=== PATIENT | female | born 1935 | race Caucasian/White ===

== ENCOUNTER 2017-07-03 17:44 | Emergency (ER) | payer MEDICARE ==
[~2017-07-03] VITALS: Ht 160 cm; Wt 93.4 kg
[~2017-07-03 17:44] MED LIST: ALBU3IS INH; ALEN70 PO; ATOR40TA PO; Acephen650 MG PR; CALCIUM 600 PO; CALTRATE 600 +1 EACH PO; CEFP200 PO; CLOP75 PO; CODACE30 PO; Cranberry500 MG PO; DILT120 PO; DILTIAZEM 24HR120 M1 PO; FURO40 PO; FURO80 PO; METO25ER PO; MIRT15 PO; NITR100CA PO; OMEP20ER PO; ONDA4ODT MM; PANT20 PO; POTCHL20ER PO; PRED10 PO; SIMV40 PO; STIOLTO RESPIMAT4 GM INH; THEO200ERA PO; THEO200ERC PO; WARF4 PO; WARF5 PO
== END 2017-07-03 18:55 | disposition home or self-care (01) ==
LOC: ER 17:44
DX: R79.1 Abnormal coagulation profile (principal); I48.91 Unspecified atrial fibrillation; Z87.891 Personal history of nicotine dependence; Z88.0 Allergy status to penicillin; Z88.2 Allergy status to sulfonamides; Z88.4 Allergy status to anesthetic agent; Z88.1 Allergy status to other antibiotic agents; Z88.8 Allergy status to other drugs, medicaments and biological substances; Z88.5 Allergy status to narcotic agent; Z79.01 Long term (current) use of anticoagulants; Z79.899 Other long term (current) drug therapy; Z90.89 Acquired absence of other organs
CPT/HCPCS: 99282

== ENCOUNTER → 2018-05-24 | Outpatient (CLI) | payer MEDICARE ==
[2018-05-24 12:00] LABS: BASOPHILS ABSOLUTE AUTO 0.03 K/mm3 (0.00-0.23); BASOPHILS PERCENT AUTO 1 % (0-2); EOSINOPHILS ABSOLUTE AUTO 0.11 K/mm3 (0.00-0.68); EOSINOPHILS PERCENT AUTO 2 % (0-6); Hematocrit 42.8 % (33.0-51.0); Hemoglobin 12.9 g/dL (11.5-16.0); IMMATURE GRAN ABSOLUTE AUTO 0.01 K/mm3 (0.00-0.10); IMMATURE GRAN PERCENT AUTO 0 % (0-1); LYMPHOCYTES ABSOLUTE AUTO 1.02 K/mm3 (0.84-5.20); LYMPHOCYTES PERCENT AUTO 17 % (21-46); MONOCYTES ABSOLUTE AUTO 0.28 K/mm3 (0.16-1.47); MONOCYTES PERCENT AUTO 5 % (4-13); Mean Corpuscular HGB 28.9 pg (26.0-34.0); Mean Corpuscular HGB Conc 30.1 g/dL (31.5-36.5); Mean Corpuscular Volume 96 fL (80-100); Mean Platelet Volume 12.4 fL (9.1-12.4); NEUTROPHILS PERCENT AUTO 75 % (41-73); Platelet Count 226 K/mm3 (150-400); RDW Coefficient Variation 13.4 % (11.7-14.2); RDW Standard Deviation 47.7 fL (35.1-46.3); Red Blood Cell Count 4.47 M/mm3 (3.80-5.20); White Blood Cell Count 5.85 K/mm3 (4.00-11.30)
[2018-05-24 12:10] LABS: Alanine Aminotransfer (ALT/SGP 12 U/L (12-78); Albumin, Blood 3.5 g/dL (3.4-5.0); Albumin/Globulin Ratio 1.2 (0.8-1.8); Alk Phos 81 U/L (50-136); Anion Gap 6 mmol/L (6-16); Aspartate Aminotrans (AST/SGOT 12 U/L (12-37); Bilirubin, Total 0.6 mg/dL (0.1-1.0); Blood Urea Nitrogen 18 mg/dL (8-24); Bun/Creatinine Ratio 17.6 (12.0-20.0); CHOL/HDL RATIO 3.1; CO2, Blood 32 mmol/L (21-32); Chloride, Blood 106 mmol/L (98-108); Cholesterol 131 mg/dL (50-200); Creatinine, Blood 1.02 mg/dL (0.40-1.00); Globulin, Blood 2.8 g/dL (2.2-4.0); Glomerular Filtration Rate 55 (60-); Glucose, Blood 100 mg/dL (70-99); HDL Cholesterol 42 mg/dL (>39); LDL/HDL RATIO 1.4; Low Density Lipoprotein Chol 58 mg/dL (0-110); Potassium, Blood 4.7 mmol/L (3.5-5.5); Sodium, Blood 144 mmol/L (136-145); Total Protein, Blood 6.3 g/dL (6.4-8.2); Triglycerides 155 mg/dL (30-160); Very Low Density Lipoprot Chol 31 mg/dL (6-32)
== END | disposition home or self-care (01) ==
LOC: LAB SHORT 09:40 → LAB 09:40
PROVIDERS: Physician Assistant
DX: I11.0 Hypertensive heart disease with heart failure (principal); I50.9 Heart failure, unspecified; E78.5 Hyperlipidemia, unspecified
CPT/HCPCS: 80053; 80061; 83880; 85025

== ENCOUNTER 2018-07-09 13:32 | Day surgery (SDC) | payer MEDICARE ==
[~2018-07-09] VITALS: Ht 160 cm; Wt 81.2 kg
[2018-07-09] MEDS ORDERED: SIMV40 PO (14:59)
[2018-07-09] MEDS ORDERED: THEO200ERC PO (15:03)
[2018-07-09] MEDS ORDERED: FURO40 (15:03)
[2018-07-09] MEDS ORDERED: PROM25S (15:04)
[2018-07-09] MEDS ORDERED: ACET120S (15:04)
[2018-07-09] MEDS ORDERED: Ventolin Sy2 MG/5 ML GT (15:05)
[2018-07-09] MEDS ORDERED: MIRT15 PO (15:06)
[2018-07-09] MEDS ORDERED: NITR100CA PO (15:06)
[2018-07-09] MEDS ORDERED: Stool Soft & S1 EACH PO (15:07)
--- NOTE | 2018-07-09 15:55 | NUR ---
07/09/18 1555 [place] LATE ENTRY-[id number] DR LAM NOTIFIED OF PATIENTS CBG WAS 60. DR LAM GAVE ORDER FOR DEXTROSE 50% TO GIVE 25 ML IV. 1500 RECHECKED PATIENTS CBG AND IT WAS 136
== END 2018-07-09 16:02 | disposition home or self-care (01) ==
LOC: ORSCSDS 13:32
PROVIDERS: Internal Medicine Gastroenterology
PROC: 0D758ZZ Dilation of Esophagus, Via Natural or Artificial Opening Endoscopic (ICD-10-PCS; principal; 2018-07-09 15:30)
PROC: 0DB68ZX Excision of Stomach, Via Natural or Artificial Opening Endoscopic, Diagnostic (ICD-10-PCS; principal; 2018-07-09 15:30)
DX: R11.0 Nausea (principal); R13.14 Dysphagia, pharyngoesophageal phase; K31.7 Polyp of stomach and duodenum; G47.33 Obstructive sleep apnea (adult) (pediatric); Z87.891 Personal history of nicotine dependence; Z79.01 Long term (current) use of anticoagulants; Z79.899 Other long term (current) drug therapy; K44.9 Diaphragmatic hernia without obstruction or gangrene
CPT/HCPCS: 82947; 87081; 88305; J7120

== ENCOUNTER 2018-10-10 18:23 | Inpatient (IN) | payer MEDICARE ==
[~2018-10-10] VITALS: Ht 157.5 cm; Wt 78.9 kg
[~2018-10-10 18:23] MED LIST changes: +ACET120S; -Acephen650 MG PR; -DILTIAZEM 24HR120 M1 PO; +Diltiazem ER180 M1 PO; +FURO40; +Feverall650 MG PR; +PROM25S; +Stool Soft & S1 EACH PO; +Ventolin Sy2 MG/5 ML GT
[2018-10-10] MEDS ORDERED: POTCHL20ER PO (19:03)
[2018-10-10] MEDS ORDERED: WARF3 PO (19:10)
[2018-10-10] MEDS ORDERED: FURO40 PO (19:36)
[2018-10-10] MEDS ORDERED: NITR100CA PO (19:37)
[2018-10-10] MEDS ORDERED: Calcium + Vita1 EACH PO (19:39)
[2018-10-10] MEDS ORDERED: Acetaminophen-1 EAC1 PO (19:42)
[2018-10-10] MEDS ORDERED: STIOLTO RESPIMAT4 GM INH (19:43)
[2018-10-10] MEDS ORDERED: WARF1 PO (19:49)
[2018-10-10 20:27] LABS: International Normalized Ratio 2.34
[2018-10-11 05:50] LABS: International Normalized Ratio 2.62; Prothrombin Time Results 25.4 Sec (9.7-11.5)
[2018-10-11 05:58] LABS: Bun/Creatinine Ratio 17.5 (12.0-20.0); Calcium, Blood 8.5 mg/dL (8.5-10.1); Creatinine, Blood 1.37 mg/dL (0.40-1.00); Potassium, Blood 3.1 mmol/L (3.5-5.5)
[2018-10-11 10:42] LABS: Albumin, Blood 3.4 g/dL (3.4-5.0); Anion Gap 7 mmol/L (6-16); Blood Urea Nitrogen 22 mg/dL (8-24); Bun/Creatinine Ratio 14.7 (12.0-20.0); CO2, Blood 29 mmol/L (21-32); Calcium, Blood 8.4 mg/dL (8.5-10.1); Chloride, Blood 104 mmol/L (98-108); Glomerular Filtration Rate 35 (60-); Glucose, Blood 75 mg/dL (70-99); Phosphorus, Blood 2.9 mg/dL (2.5-4.9); Potassium, Blood 3.6 mmol/L (3.5-5.5); Sodium, Blood 140 mmol/L (136-145)
--- NOTE | 2018-10-11 14:11 | NUR ---
DR FENTON IN TO SEE PT. HR REPORTS THAT HE CANNOT DO ANY DILATION ON PT DUE TO BEING ON COUMADIN AND PLAVIX AND PT NEEDS TO BE OFF THIS FOR APROX 5 DAYS. HE STATES THAT PT CAN BE PLACED ON A FULL LIQUID DIET AND SUGGESTS STAYING ON FULL LIQUID AFTER DISCHARGE AND TO SCHEDULE APPOINTMENT WITH DR GODINEZ FOR DILATION. PT REPORTS SHE STILL DOES NOT FEEL WELL. DR PAN NOTIFIED AND REPORTS TO GIVE PT A FULL LIQUID DIET NOW AND HE WILL COME BACK TO CHECK ON PT.
--- NOTE | 2018-10-11 15:07 | NUR ---
PT ONLY TOLERATED A FEW BITES OF JELLO AND THEN BECAME NAUEATED WITH SMALL AMOUNT OF EMESIS. PT REPORTS IT JUST FEELS LIKE "IT WONT GO DOWN."
--- NOTE | 2018-10-11 18:27 | NUR ---
SHIFT SUMMARY- PT A/OX4, SBA WITH FWW INTO BATHROOM. PT MEDICATED X1 FOR CHRONIC BACK PAIN. GI CONSULTED AND REPORTED THEY CANNOT DO A DILATION SINCE PT IS ON COUMADIN AND PLAVIX, THIS NEEDS TO BE HELD FOR AT LEAST 5 DAYS. PT STARTED ON FULL LIQUID DIET BUT NOT TOLERATING. IVF CHANGED THIS EVENING FOR 2 BAGS THEN CLINIMIX TO START TOMORROW AM. PT WITH NAUSEA T/O THE DAY WITH MINIMAL EMESIS AFTER JELLO. IV PROTONIX STARTED. LS CLEAR, ON RA. TELE AFIB 78. NO OTHER ACUTE CHANGES THIS SHIFT.
--- NOTE | 2018-10-11 18:39 | NUR ---
SHIFT SUMMARY PT FELT NAUSIOUS OFF AND ON DURING THE SHIFT. GAVE PRN MEDICATION FOR NAUSEA AND SHE ATTEMPTED TO EAT. SHE AT A SMALL AMOUNT OF JELLO AND VOMITED IT UP. SHE WAS HAVING SOME PAIN IN HER BACK AND WAS GIVEN PRN TYLENOL. PLAN IS TO CONTINUE TO MONITOR.
--- NOTE | 2018-10-11 20:31 | NUR ---
CLINIMIX STARTS 10/12/18 0900HRS. CHECK EMAR.
--- NOTE | 2018-10-12 05:45 | NUR ---
SHIFT SUMMARY PT SLEPT T/O SHIFT WITH NO COMPLAINTS. PT CURRENTLY SLEEPING. CALL LIGHT IN REACH.
[2018-10-12 05:54] LABS: Bun/Creatinine Ratio 15.5 (12.0-20.0); Calcium, Blood 8.4 mg/dL (8.5-10.1); Creatinine, Blood 1.29 mg/dL (0.40-1.00)
--- NOTE | 2018-10-12 16:47 | NUR ---
PT A/OX3, PLEASANT AND COOPERATIVE, THE PT IS UP WITH MINIMAL ASSIST TO THE BATHROOM, THE PT WAS UP IN THE CHAIR X1 TODAY, THE PT WAS ABLE TO EAT A SMALL AMOUNT OF HER BREAKFAST TODAY WITHOUT VOMITING, HOWEVER, AT LUNCH THE PT VOMITED A SMALL AMOUNT OF HER SOUP, THE PT WAS MEDICATED FOR N/V T/O THE DAY SHE REQUESTED, THE PT APPEARS TO BE BREATHING EASILY AT REST, CALL LIGHT IN REACH WILL CONTINUE TO MONITOR AND ASSESS FOR CHANGES
[2018-10-13 06:07] LABS: Bun/Creatinine Ratio 20.8 (12.0-20.0); Calcium, Blood 8.4 mg/dL (8.5-10.1); Creatinine, Blood 1.2 mg/dL (0.40-1.00); Potassium, Blood 4.4 mmol/L (3.5-5.5)
--- NOTE | 2018-10-13 07:20 | NUR ---
SHIFT SUMMARY PT SLEPT T/O SHIFT. PT HAD NO COMPLAINTS OR ISSUES NOTED. PT HAD SOME NAUSEA THIS AM WITH MED PASS AND WAS TX PER EMAR. PT WENT BACK TO SLEEP SHORTLY AFTER. PT IS BREATHING EASY AND IN NO DISTRESS. CALL LIGHT IN REACH.
--- NOTE | 2018-10-13 15:27 | NUR ---
STUDENT ASSESSMENT I AGREE WITH AND WAS PRESENT AT THE ENEDINA CHAPPELL ASSESSMENT OF THE PT
--- NOTE | 2018-10-13 17:09 | NUR ---
Pt is A&Ox3. Pt is calm and cooperative. Pt has been awake with small naps throughout this shift. Small amounts of meals have been consumed and tolerated poorly. Order for PPN was placed this afternoon. Pt has had visitor in the room for a portion of this shift. Barium swallow test performed this afternoon. Pt is standby ambulatory with front wheel walker to the bathroom. Pt currently in room with visitor. Will continue to monitor.
[2018-10-14 06:42] LABS: BASOPHILS ABSOLUTE AUTO 0.02 K/mm3 (0.00-0.23); BASOPHILS PERCENT AUTO 0 % (0-2); EOSINOPHILS ABSOLUTE AUTO 0.27 K/mm3 (0.00-0.68); EOSINOPHILS PERCENT AUTO 5 % (0-6); Hematocrit 36.5 % (33.0-51.0); Hemoglobin 11.1 g/dL (11.5-16.0); IMMATURE GRAN ABSOLUTE AUTO 0.02 K/mm3 (0.00-0.10); IMMATURE GRAN PERCENT AUTO 0 % (0-1); LYMPHOCYTES ABSOLUTE AUTO 1.16 K/mm3 (0.84-5.20); LYMPHOCYTES PERCENT AUTO 22 % (21-46); MONOCYTES ABSOLUTE AUTO 0.46 K/mm3 (0.16-1.47); MONOCYTES PERCENT AUTO 9 % (4-13); Mean Corpuscular HGB 28.1 pg (26.0-34.0); Mean Corpuscular HGB Conc 30.4 g/dL (31.5-36.5); Mean Platelet Volume 12.8 fL (9.1-12.4); NEUTROPHILS ABSOLUTE AUTO 3.35 K/mm3 (1.96-9.15); NEUTROPHILS PERCENT AUTO 63 % (41-73); Platelet Count 132 K/mm3 (150-400); RDW Coefficient Variation 14.2 % (11.7-14.2); RDW Standard Deviation 47.8 fL (35.1-46.3); Red Blood Cell Count 3.95 M/mm3 (3.80-5.20); White Blood Cell Count 5.28 K/mm3 (4.00-11.30)
[2018-10-14 06:48] LABS: Mean Corpuscular Volume 92 fL (80-100)
[2018-10-14 06:58] LABS: Albumin, Blood 2.5 g/dL (3.4-5.0); Anion Gap 5 mmol/L (6-16); Blood Urea Nitrogen 30 mg/dL (8-24); Bun/Creatinine Ratio 28.6 (12.0-20.0); CO2, Blood 29 mmol/L (21-32); Calcium, Blood 8.4 mg/dL (8.5-10.1); Chloride, Blood 106 mmol/L (98-108); Creatinine, Blood 1.05 mg/dL (0.40-1.00); Glomerular Filtration Rate 53 (60-); Glucose, Blood 130 mg/dL (70-99); Magnesium, Blood 2.4 mg/dL (1.6-2.4); Phosphorus, Blood 3.3 mg/dL (2.5-4.9); Potassium, Blood 4.5 mmol/L (3.5-5.5); Sodium, Blood 140 mmol/L (136-145); Triglycerides 137 mg/dL (30-160)
--- NOTE | 2018-10-14 07:50 | NUR ---
Rn summary: Patient is alert and oriented. Patient is on PPN. Blood sugar 141. Pt on tele which showed Afib in the 60's. Pt has had no nausia reported this shift. Pt rested fairly well. No c/o pain. Call light in reach.
--- NOTE | 2018-10-14 19:33 | NUR ---
PT A/OX3, PLEASANT AND COOPERATIVE, THE PT IS UP WITH MINIMAL ASSIST TO THE BATHROOM AND TO THE CHAIR, THE PT DENIED ANY PAIN T/O THE DAY, THE PT WAS ABLE TO TAKE SMALL AMOUNTS OF FOOD WITHOUT N/V, PT APPEARS TO BE BREATHING EASILY ON RA, SCD'S ON AT THIS TIME, CALL LIGHT IN REACH, NO OTHER CHANGES NOTICED THIS SHIFT
--- NOTE | 2018-10-15 07:11 | NUR ---
a+o, room air, tpn running, call light in reach, no problem swollowing medication on at a time, walking rounds completed with day shift
[2018-10-15 07:17] LABS: Anion Gap 4 mmol/L (6-16); Blood Urea Nitrogen 32 mg/dL (8-24); Bun/Creatinine Ratio 37.3 (12.0-20.0); CO2, Blood 28 mmol/L (21-32); Calcium, Blood 8.2 mg/dL (8.5-10.1); Chloride, Blood 103 mmol/L (98-108); Creatinine, Blood 0.86 mg/dL (0.40-1.00); Glomerular Filtration Rate >60 (60-); Glucose, Blood 243 mg/dL (70-99); Magnesium, Blood 2.5 mg/dL (1.6-2.4); Phosphorus, Blood 5.4 mg/dL (2.5-4.9); Potassium, Blood 5.7 mmol/L (3.5-5.5); Sodium, Blood 135 mmol/L (136-145)
--- NOTE | 2018-10-15 16:52 | NUR ---
SHIFT SUMMARY NO ACUTE CHANGES. PATIENT DENIES PAIN, NAUSEA, AND SHORTNESS OF BREATH. UP IN CHAIR FOR MEALS. PATIENT NPO AT MIDNIGHT, MAY HAVE CLEAR LIQUID BREAKFAST, THEN NPO AGAIN FOR ENDOSCOPY TOMORROW. CALL LIGHT IN REACH, WILL CONTINUE TO MONITOR.
--- NOTE | 2018-10-15 19:00 | NUR ---
VTACH PEARL FISHERMAN CALLED TO INFORM OF 6 BEAT RUN OF VTACH. RN CALLED SHERRI JEAN BAPTISTE TO ADVISE OF SITUATION. SHERRI JEAN BAPTISTE WILL FOLLOW UP.
[2018-10-15 22:25] LABS: Anion Gap 3 mmol/L (6-16); Blood Urea Nitrogen 33 mg/dL (8-24); Bun/Creatinine Ratio 36.3 (12.0-20.0); CO2, Blood 28 mmol/L (21-32); Calcium, Blood 8.7 mg/dL (8.5-10.1); Chloride, Blood 106 mmol/L (98-108); Creatinine, Blood 0.91 mg/dL (0.40-1.00); Glomerular Filtration Rate >60 (60-); Glucose, Blood 147 mg/dL (70-99); Magnesium, Blood 2.6 mg/dL (1.6-2.4); Phosphorus, Blood 4.3 mg/dL (2.5-4.9); Potassium, Blood 4.8 mmol/L (3.5-5.5); Sodium, Blood 137 mmol/L (136-145)
[2018-10-16 06:37] LABS: Anion Gap 3 mmol/L (6-16); Blood Urea Nitrogen 31 mg/dL (8-24); Bun/Creatinine Ratio 35.1 (12.0-20.0); CO2, Blood 30 mmol/L (21-32); Calcium, Blood 8.6 mg/dL (8.5-10.1); Chloride, Blood 107 mmol/L (98-108); Creatinine, Blood 0.88 mg/dL (0.40-1.00); Glomerular Filtration Rate >60 (60-); Glucose, Blood 114 mg/dL (70-99); Magnesium, Blood 2.6 mg/dL (1.6-2.4); Phosphorus, Blood 4.3 mg/dL (2.5-4.9); Potassium, Blood 4.7 mmol/L (3.5-5.5); Sodium, Blood 140 mmol/L (136-145)
--- NOTE | 2018-10-16 06:59 | NUR ---
npo for procedure today, liquid breakfast, walking rounds completed with day staff, call light in reach, TPN running into PICC line
--- NOTE | 2018-10-16 15:58 | NUR ---
10/16/18 1558 Natacha Shetty MAC CASE WITH DR. PARTIDA
--- NOTE | 2018-10-16 18:31 | NUR ---
PATIENT HAD NO COMPLAINTS THIS SHIFT. SHE REFUSES TO TRY ANY FOOD OTHER THAN CLEAR LIQUIDS. SHE IS ON PPN AND IT TOLERATING IT WELL. NO ACUTE CHANGES.
[2018-10-17 06:02] LABS: Anion Gap 3 mmol/L (6-16); Blood Urea Nitrogen 29 mg/dL (8-24); Bun/Creatinine Ratio 34.6 (12.0-20.0); CO2, Blood 29 mmol/L (21-32); Calcium, Blood 8.4 mg/dL (8.5-10.1); Chloride, Blood 108 mmol/L (98-108); Creatinine, Blood 0.84 mg/dL (0.40-1.00); Glomerular Filtration Rate >60 (60-); Glucose, Blood 117 mg/dL (70-99); Potassium, Blood 5.2 mmol/L (3.5-5.5); Sodium, Blood 140 mmol/L (136-145)
--- NOTE | 2018-10-17 07:34 | NUR ---
NOC SHIFT SUMMARY PT IS PLEASANT AND COOPERATIVE WITH CARE THIS NIGHT. NO ACUTE CHANGES NOTED THIS NIGHT. VSS. APPEARS IN NO ACUTE DISTRESS. REPORT TO ONCOMING RN.
--- NOTE | 2018-10-17 18:06 | NUR ---
NO ACUTE CHANGES THIS SHIFT. PATIENT HAS HAD NO COMPLAINTS OF PAIN. EATING SOFT FOOD THIS SHIFT. POSSIBLE DC TOMORROW.
--- NOTE | 2018-10-18 05:05 | NUR ---
*SHIFT SUMMARY* PATIENT IS ALERT AND ORIENTED. USES CALL LIGHT WHEN NEEDS TO USE THE RESTROOM. PATIENT IS A SBA WITH WALKER. DENIES PAIN OR SOB. PLAN IS TO POTENTIALLY DISCHARGE TODAY. PATIENT SLEPT WELL THROUGHOUT THE NIGHT. VITAL SIGNS STABLE. PATIENT HAD AN UNEVENTFUL NIGHT.
[2018-10-18 06:34] LABS: Albumin, Blood 2.5 g/dL (3.4-5.0); Anion Gap 3 mmol/L (6-16); Blood Urea Nitrogen 28 mg/dL (8-24); Bun/Creatinine Ratio 26.7 (12.0-20.0); CO2, Blood 29 mmol/L (21-32); Calcium, Blood 8.4 mg/dL (8.5-10.1); Chloride, Blood 110 mmol/L (98-108); Creatinine, Blood 1.05 mg/dL (0.40-1.00); Glomerular Filtration Rate 53 (60-); Glucose, Blood 87 mg/dL (70-99); Phosphorus, Blood 3.6 mg/dL (2.5-4.9); Potassium, Blood 4.6 mmol/L (3.5-5.5); Sodium, Blood 142 mmol/L (136-145)
[2018-10-18] MEDS ORDERED: Sucralfate1 GM/10 ML PO (10:02)
--- NOTE | 2018-10-18 14:36 | NUR ---
PT DISCHARGED PT DISCAHRGED AT 1435. PT IN STABLE CONDITION WITH VSS. PT & DAUGHTER EDUCATED ON DC INSTRUCTION, NEW MEDS, & FOLLOW UP APPOINTMENTS. PT & DAUGHTER DENIED FURTHER QUESTIONS. PT WHEELED OUT BU AIDE & DRIVEN HOME BY DAUGHTER. IV REMOVED & INTACT.
== END 2018-10-18 14:32 | disposition home or self-care (01) | DRG 381 ==
LOC: ER 18:23 → MEDS 18:24 → ENPENDDIS 10-18 09:53 → MEDS 10-18 14:32
PROVIDERS: Family Medicine; Internal Medicine Endocrinology, Diabetes & Metabolism; Internal Medicine Gastroenterology; Nurse Practitioner Acute Care; Student in an Organized Health Care Education/Training Program; ADMIT Internal Medicine
PROC: 0D758ZZ Dilation of Esophagus, Via Natural or Artificial Opening Endoscopic (ICD-10-PCS; principal; 2018-10-16 16:00)
PROC: 0DB58ZX Excision of Esophagus, Via Natural or Artificial Opening Endoscopic, Diagnostic (ICD-10-PCS; 2018-10-16 16:00)
DX: K22.10 Ulcer of esophagus without bleeding (principal); N17.9 Acute kidney failure, unspecified; I50.32 Chronic diastolic (congestive) heart failure; I13.0 Hypertensive heart and chronic kidney disease with heart failure and stage 1 through stage 4 chronic kidney disease, or unspecified chronic kidney disease; K91.0 Vomiting following gastrointestinal surgery; K21.0 Gastro-esophageal reflux disease with esophagitis; E87.6 Hypokalemia; K44.9 Diaphragmatic hernia without obstruction or gangrene; J44.9 Chronic obstructive pulmonary disease, unspecified; I48.2 Chronic atrial fibrillation; E78.5 Hyperlipidemia, unspecified; Z87.891 Personal history of nicotine dependence; E86.0 Dehydration; E11.21 Type 2 diabetes mellitus with diabetic nephropathy; Z96.652 Presence of left artificial knee joint; Z66 Do not resuscitate; N18.3 Chronic kidney disease, stage 3 (moderate); E11.22 Type 2 diabetes mellitus with diabetic chronic kidney disease; Z86.73 Personal history of transient ischemic attack (TIA), and cerebral infarction without residual deficits; Z79.01 Long term (current) use of anticoagulants; Z79.02 Long term (current) use of antithrombotics/antiplatelets; E78.00 Pure hypercholesterolemia, unspecified; Y92.9 Unspecified place or not applicable
CPT/HCPCS: 36415; 74220; 80048; 80069; 82947; 83735; 84100; 84478; 85025; 85610; 96365; 96366; 96375; 96376; 99285-25; C1726; C9113; G0378; J0780; J2405; J2704; J2765; J3480; J7040; J7120

== ENCOUNTER → 2018-11-13 | Outpatient (CLI) | payer MEDICARE ==
[~2018-11-13] MED LIST changes: +Acetaminophen-1 EAC1 PO; +Calcium + Vita1 EACH PO; +Sucralfate1 GM/10 ML PO; +WARF1 PO; +WARF3 PO
== END | disposition home or self-care (01) ==
LOC: LAB SHORT 16:53 → LAB EV 16:53
DX: N39.0 Urinary tract infection, site not specified (principal)
CPT/HCPCS: 87086

== ENCOUNTER → 2018-12-26 | Outpatient (CLI) | payer MEDICARE ==
[~2018-12-26] MED LIST changes: +ALBU2.5V5 INH; +BENADRYL25 MG PO; +CALCIUM 600 +1 EA11 PO; +Colace100 MG PO; +GAVILAX17 GM PO; +K-Dur20 MEQ PO; +Lopressor 25 mg25 MG PO; +ONDA4ODT PO; +POTA20PAC PO; +Pedi-Dri 100,0060 GM; +Phenergan6.25 MG/5 PO; +Plavix75 MG PO; +STIOLTO RESPIMAT4 GM IH; +XARELTO2.5 MG
== END | disposition home or self-care (01) ==
LOC: LAB EV 16:15 → LAB SHORT 16:15
DX: N30.10 Interstitial cystitis (chronic) without hematuria (principal)
CPT/HCPCS: 87077; 87086; 87186

== ENCOUNTER 2018-12-31 08:51 | Day surgery (SDC) | payer MEDICARE ==
[~2018-12-31] VITALS: Ht 160 cm; Wt 73.1 kg
[~2018-12-31 08:51] MED LIST changes: -ONDA4ODT PO; -Pedi-Dri 100,0060 GM; -Phenergan6.25 MG/5 PO; -STIOLTO RESPIMAT4 GM IH
[2018-12-31] MEDS ORDERED: POTCHL20ER PO (09:28)
== END 2018-12-31 10:44 | disposition home or self-care (01) ==
LOC: ORSCSDS 08:51
PROVIDERS: Internal Medicine Gastroenterology
PROC: 0D757ZZ Dilation of Esophagus, Via Natural or Artificial Opening (ICD-10-PCS; principal; 2018-12-31 10:15)
PROC: 0DB68ZX Excision of Stomach, Via Natural or Artificial Opening Endoscopic, Diagnostic (ICD-10-PCS; principal; 2018-12-31 10:15)
DX: K22.10 Ulcer of esophagus without bleeding (principal); R13.14 Dysphagia, pharyngoesophageal phase; K21.9 Gastro-esophageal reflux disease without esophagitis; I10 Essential (primary) hypertension; I25.10 Atherosclerotic heart disease of native coronary artery without angina pectoris; I48.91 Unspecified atrial fibrillation; Z79.01 Long term (current) use of anticoagulants; G47.33 Obstructive sleep apnea (adult) (pediatric); E11.9 Type 2 diabetes mellitus without complications; Z86.73 Personal history of transient ischemic attack (TIA), and cerebral infarction without residual deficits; J45.909 Unspecified asthma, uncomplicated; Z79.899 Other long term (current) drug therapy
CPT/HCPCS: 82947; 88305; J2704

== ENCOUNTER → 2019-02-28 | Outpatient (CLI) | payer MEDICARE ==
[~2019-02-28] MED LIST changes: +ONDA4ODT PO; +Pedi-Dri 100,0060 GM; +Phenergan6.25 MG/5 PO; +STIOLTO RESPIMAT4 GM IH
[2019-03-01 16:58] LABS: Adenovirus F 40/41 Not Detected (NOT DETECT); Astrovirus Not Detected (NOT DETECT); Campylobacter Sp Not Detected (NOT DETECT); Cryptosporidium Not Detected (NOT DETECT); Cyclospora Cayetanensis Not Detected (NOT DETECT); E. Coli O157 Not Detected (NOT DETECT); Entamoeba Histolytica Not Detected (NOT DETECT); Enteroaggregative E. coli-EAEC Not Detected (NOT DETECT); Enteropathogenic E. coli-EPEC Not Detected (NOT DETECT); Enterotoxigenic E. coli-ETEC Not Detected (NOT DETECT); Giardia Lamblia Not Detected (NOT DETECT); Norovirus GI/GII Not Detected (NOT DETECT); Plesiomonas Shigelloides Not Detected (NOT DETECT); Rotavirus A Not Detected (NOT DETECT); Salmonella Sp Not Detected (NOT DETECT); Sapovirus Not Detected (NOT DETECT); Shiga Toxin-prod E. coli-STEC Not Detected (NOT DETECT); Shigella/Enteroin E. coli-EIEC Not Detected (NOT DETECT); Vibrio Cholerae Not Detected (NOT DETECT); Vibrio Sp Not Detected (NOT DETECT); Yersinia Enterocolitica Not Detected (NOT DETECT)
== END ==
LOC: LAB EV 10:23
PROVIDERS: Physician Assistant
DX: R10.9 Unspecified abdominal pain (principal); R11.0 Nausea; R19.7 Diarrhea, unspecified
CPT/HCPCS: 0097U

== ENCOUNTER 2019-03-04 17:59 | Inpatient (IN) | payer MEDICARE ==
[~2019-03-04] VITALS: Ht 162.6 cm; Wt 65.3 kg
[~2019-03-04 17:59] MED LIST changes: -ONDA4ODT PO; -Pedi-Dri 100,0060 GM; -Phenergan6.25 MG/5 PO; -STIOLTO RESPIMAT4 GM IH
[2019-03-04] MEDS ORDERED: Pedi-Dri 100,0060 GM (18:26)
[2019-03-04] MEDS ORDERED: STIOLTO RESPIMAT4 GM IH (18:26)
[2019-03-04 19:23] LABS: Source, Urine Clean Catch
[2019-03-04 19:26] LABS: Bilirubin, Urine Neg (Neg); Blood, Urine Neg (Neg); Glucose Qualitative, Urine Neg (Neg); Ketones, Urine 1+ (Neg); Leukocyte Esterase, Urine 1+ (Neg); Nitrite, Urine Neg (Neg); Protein, Urine Neg (Neg); Urobilinogen, Urine NORM (Normal)
[2019-03-04 19:56] LABS: Appearance, Urine Clear (Clear); Color, Urine Yellow (P-Yellow)
[2019-03-04 19:57] LABS: Bacteria Rare /hpf; Red Blood Cells, Urine Not Seen /hpf (0-2); Squamous Epithelial Cells Mod /hpf (Few); White Blood Cells, Urine 0-2 /hpf (0-5)
[2019-03-05 05:43] LABS: Hematocrit 35.6 % (33.0-51.0); Hemoglobin 11.3 g/dL (11.5-16.0); Mean Corpuscular HGB 30.5 pg (26.0-34.0); Mean Corpuscular HGB Conc 31.7 g/dL (31.5-36.5); Mean Corpuscular Volume 96 fL (80-100); Mean Platelet Volume 12.3 fL (9.1-12.4); Platelet Count 175 K/mm3 (150-400); RDW Coefficient Variation 15.9 % (11.7-14.2); RDW Standard Deviation 55.8 fL (35.1-46.3); Red Blood Cell Count 3.71 M/mm3 (3.80-5.20); White Blood Cell Count 6.62 K/mm3 (4.00-11.30)
[2019-03-05 06:16] LABS: Albumin, Blood 2.9 g/dL (3.4-5.0); Albumin/Globulin Ratio 1.2 (0.8-1.8); Bilirubin, Total 0.6 mg/dL (0.1-1.0); Bun/Creatinine Ratio 24.4 (12.0-20.0); Creatinine, Blood 1.31 mg/dL (0.40-1.00); Globulin, Blood 2.5 g/dL (2.2-4.0); Potassium, Blood 2.6 mmol/L (3.5-5.5); Total Protein, Blood 5.4 g/dL (6.4-8.2)
--- NOTE | 2019-03-05 06:45 | NUR ---
PATIENT RESTING COMFORTABLY IN NO APPARENT DISTRESS. DENIES PAIN, SOB, NAUSEA. SHE HAD INTERMITTENT NAUSEA DURING THE NOC SHIFT. PER PATIENT REPORT SHE IS UNABLE TO TOLERATE ORAL POTASSIAM. BUT HER POTASSIUM IS LOW (2.[address] SPOKE [address] CARTER WHO OKAYED 1 BAG OF NS + 40 MEQ KCL FOR THIS PATIENT. IV ANTIBIOTICS INTERRUPTED INFUSION OF THE POTASSIUM BUT WILL RESUEM SHORTLY. GASTROENTEROLOGY CX. PT HAS BEEN NPO WITH ONLY SIPS AND CHIPPS TONIGHT.REPORT PASSED TO DAY NURSE
--- NOTE | 2019-03-05 18:34 | NUR ---
PATIENT HAS SLEPT MOST OF THE SHIFT. DINNER TIME CBG WAS 60, DOC NOTIFIED AND HALF D50 GIVEN PER ORDER. PATIENT HAS BECOME MORE AWAKE TOWARDS END OF THIS SHIFT TALKING WITH NURSE AND DAUGHTER. SHE HAS HAD NO COMPLAINTS OF PAIN. K+ GIVEN PER ORDER. NO ACUTE CHANGES TO PATIENT. CALL LIGHT WITHIN REACH.
--- NOTE | 2019-03-05 19:35 | NUR ---
PATIENT GOING OUT FOR ENDOSCOPY
--- NOTE | 2019-03-05 19:50 | NUR ---
PT TRANS PORTED TO [facility]. DAUGHTER AT BEDSIDE. AGREES WITH PLANNED PROCEDURE. LUNG SOUNDS CLEAR. LEFT HEARING AID LEFT IN PT ROOM IN CUP. MEDICAL NECKLACE GIVEN TO DAUGHTER.
--- NOTE | 2019-03-05 20:27 | NUR ---
03/05/192026 Jordyn Hameed PATIENT DETERMINED TO BE ASA APPROPRIATE FOR PROPOFOL SEDATION PRIOR TO START OF PROCEDURE BY DR. LEWIS AFTER EXTENSIVE DISCUSSION REGARDING PATIENT'S PREVIOUS SEDATION WITH ANESTHESIOLOGIST, WILFREDO AND HOME O2 AT NIGHT VIA NC DUE TO INABILITY TO TOLERATE. History, Chart, Medications and Allergies reviewed before start of procedure. Patient confirms NPO status and agrees with scheduled surgery. PATIENT CONFIRMS NPO STATUS AND AGREES WITH SCHEDULED PROCEDURE. MONITOR INTACT WITH CONTINUOUS PULSE OXIMETRY AND INTERMITTENT BP. O2 VIA POM INTACT THROUGHOUT SEDATION/PROCEDURE.
--- NOTE | 2019-03-05 21:28 | NUR ---
PATIENT BACK FROM SURGICAL PROCEDURE ENDOSCOPY.
--- NOTE | 2019-03-06 03:53 | NUR ---
SHIFT SUMMARY PATIENT CBG REASSESSED AT 100 AFTER BEING 60 END OF DAY SHIFT; SEE NOTE. PATIENT OUT FOR ENDOSCOPY THIS SHIFT AND RETURNED TO ROOM. NAUSEOUS ABOUT AN HOUR AFTER RETURNING AND RECEIVED IV ZOFRAN. PATIENT CONTINUED TO BE NAUSEOUS AND IV REGLAN GIVEN AND N/V RESOLVED. NEW PIV IN PLACE. IV ABXS INFUSED. PATIENT NOW FULL LIQUID DIET AFTER BEING NPO. NEW ORDERS FROM DR LEWIS FOR CRUSHED MEDS WITH LIQUIDS. ALSO FOR PHARMACY TO CHANGE MEDS TO LIQUID IF POSSIBLE. PHARMACY NOTIFIED PER NURSE NOTE. VSS/AFEBRILE. DENIES PAIN AND SOB. CALL LIGHT IN REACH. BED IN LOWEST POSITION. WILL CONTINUE TO MONITOR UNTIL DAY SHIFT NURSE ASSUMES CARE.
[2019-03-06 05:37] LABS: BASOPHILS ABSOLUTE AUTO 0.01 K/mm3 (0.00-0.23); BASOPHILS PERCENT AUTO 0 % (0-2); EOSINOPHILS ABSOLUTE AUTO 0.03 K/mm3 (0.00-0.68); EOSINOPHILS PERCENT AUTO 1 % (0-6); Hematocrit 35.1 % (33.0-51.0); IMMATURE GRAN ABSOLUTE AUTO 0.02 K/mm3 (0.00-0.10); IMMATURE GRAN PERCENT AUTO 0 % (0-1); LYMPHOCYTES ABSOLUTE AUTO 1.08 K/mm3 (0.84-5.20); LYMPHOCYTES PERCENT AUTO 21 % (21-46); MONOCYTES ABSOLUTE AUTO 0.42 K/mm3 (0.16-1.47); MONOCYTES PERCENT AUTO 8 % (4-13); Mean Corpuscular HGB 30.3 pg (26.0-34.0); Mean Corpuscular HGB Conc 31.3 g/dL (31.5-36.5); Mean Corpuscular Volume 97 fL (80-100); Mean Platelet Volume 12.3 fL (9.1-12.4); NEUTROPHILS ABSOLUTE AUTO 3.69 K/mm3 (1.96-9.15); NEUTROPHILS PERCENT AUTO 70 % (41-73); Platelet Count 165 K/mm3 (150-400); RDW Coefficient Variation 16.1 % (11.7-14.2); RDW Standard Deviation 57.1 fL (35.1-46.3); Red Blood Cell Count 3.63 M/mm3 (3.80-5.20); White Blood Cell Count 5.25 K/mm3 (4.00-11.30)
[2019-03-06 06:11] LABS: Bun/Creatinine Ratio 18.9 (12.0-20.0); Calcium, Blood 7.9 mg/dL (8.5-10.1); Creatinine, Blood 1.22 mg/dL (0.40-1.00); Potassium, Blood 2.9 mmol/L (3.5-5.5)
--- NOTE | 2019-03-07 04:22 | NUR ---
SHIFT SUMMARY PT IS ALERT, ORIENTED, AND 1X TO COMMODE. PT DIDN'T COMPLAIN OF ANY PAIN THIS SHIFT. PT DID HAVE A BIT OF AN "UPSET STOMACH" WHICH WAS REMEDIED WITH MILK. PT WAS UP TO THE COMMODE APPROPRIATELY AND ABLE TO REPOSITION HERSELF. VSS. WILL CONTINUE TO MONITOR.
[2019-03-07 05:44] LABS: BASOPHILS ABSOLUTE AUTO 0.01 K/mm3 (0.00-0.23); BASOPHILS PERCENT AUTO 0 % (0-2); EOSINOPHILS ABSOLUTE AUTO 0.09 K/mm3 (0.00-0.68); EOSINOPHILS PERCENT AUTO 2 % (0-6); Hematocrit 34.4 % (33.0-51.0); Hemoglobin 10.4 g/dL (11.5-16.0); IMMATURE GRAN ABSOLUTE AUTO 0.02 K/mm3 (0.00-0.10); IMMATURE GRAN PERCENT AUTO 0 % (0-1); LYMPHOCYTES ABSOLUTE AUTO 1.13 K/mm3 (0.84-5.20); LYMPHOCYTES PERCENT AUTO 23 % (21-46); MONOCYTES ABSOLUTE AUTO 0.42 K/mm3 (0.16-1.47); MONOCYTES PERCENT AUTO 9 % (4-13); Mean Corpuscular HGB 30.7 pg (26.0-34.0); Mean Corpuscular HGB Conc 30.2 g/dL (31.5-36.5); Mean Platelet Volume 12.5 fL (9.1-12.4); NEUTROPHILS ABSOLUTE AUTO 3.22 K/mm3 (1.96-9.15); NEUTROPHILS PERCENT AUTO 66 % (41-73); Platelet Count 151 K/mm3 (150-400); RDW Coefficient Variation 16.3 % (11.7-14.2); Red Blood Cell Count 3.39 M/mm3 (3.80-5.20); White Blood Cell Count 4.89 K/mm3 (4.00-11.30)
[2019-03-07 06:11] LABS: Albumin, Blood 2.5 g/dL (3.4-5.0); Anion Gap 4 mmol/L (6-16); Blood Urea Nitrogen 24 mg/dL (8-24); Bun/Creatinine Ratio 19.7 (12.0-20.0); CO2, Blood 31 mmol/L (21-32); Calcium, Blood 8.1 mg/dL (8.5-10.1); Chloride, Blood 112 mmol/L (98-108); Creatinine, Blood 1.22 mg/dL (0.40-1.00); Glomerular Filtration Rate 45 (60-); Glucose, Blood 128 mg/dL (70-99); Magnesium, Blood 1.9 mg/dL (1.6-2.4); Phosphorus, Blood 2.1 mg/dL (2.5-4.9); Potassium, Blood 3.4 mmol/L (3.5-5.5); Sodium, Blood 147 mmol/L (136-145)
[2019-03-07 06:28] LABS: Mean Corpuscular Volume 102 fL (80-100)
[2019-03-07] MEDS ORDERED: ONDA4ODT PO (11:14)
[2019-03-07] MEDS ORDERED: Phenergan6.25 MG/5 PO (11:15)
[2019-03-07] MEDS ORDERED: METO25ER PO (14:26)
--- NOTE | 2019-03-07 14:49 | NUR ---
PT DISCHARGED TO HOME WITH DAUGHTER. PT STANDBY ASSIST IN ROOM AND SELF TRANSFERED FROM CHAIR TO WHEELCHAIR FOR TRANSPORTATION. PT ALERT AND ORIENTED. PT AND DAUGHTER EDUCATED ON HOME MEDICATIONS AND DIETARY RESTRICTIONS. BOTH VERBALIZED UNDERSTANDING OF EDUCATION. PT BELONGINGS WITH PT UPON DISCHARGE.
== END 2019-03-07 15:47 | disposition home or self-care (01) | DRG 683 ==
LOC: ER 17:59 → ERHOLD 22:31 → MEDS 22:31 → ENPENDDIS 03-07 09:36 → MEDS 03-07 15:47
PROVIDERS: Emergency Medicine; Family Medicine; Internal Medicine Gastroenterology; ADMIT Internal Medicine
DX: N17.9 Acute kidney failure, unspecified (principal); I13.0 Hypertensive heart and chronic kidney disease with heart failure and stage 1 through stage 4 chronic kidney disease, or unspecified chronic kidney disease; E78.5 Hyperlipidemia, unspecified; I48.91 Unspecified atrial fibrillation; Z96.652 Presence of left artificial knee joint; Z87.891 Personal history of nicotine dependence; E87.6 Hypokalemia; K44.9 Diaphragmatic hernia without obstruction or gangrene; E86.0 Dehydration; Z79.02 Long term (current) use of antithrombotics/antiplatelets; N18.3 Chronic kidney disease, stage 3 (moderate); E11.22 Type 2 diabetes mellitus with diabetic chronic kidney disease; R13.10 Dysphagia, unspecified; I25.10 Atherosclerotic heart disease of native coronary artery without angina pectoris; M81.0 Age-related osteoporosis without current pathological fracture; K22.2 Esophageal obstruction; K20.8 Other esophagitis; E78.00 Pure hypercholesterolemia, unspecified; I50.9 Heart failure, unspecified
CPT/HCPCS: 36415; 74176; 80048; 80053; 80069; 81001; 82947; 83735; 85025; 85027; 87086; 93005; 93010; 94760; 96365; 96366; 96375; 99285-25; A9270-GY; C9113; J0696; J1650; J2405; J2704; J2765; J3480; J7030; J7120; J7799

== ENCOUNTER → 2019-03-04 | Outpatient (CLI) | payer MEDICARE ==
[2019-03-04 16:16] LABS: BASOPHILS ABSOLUTE AUTO 0.01 K/mm3 (0.00-0.23); BASOPHILS PERCENT AUTO 0 % (0-2); EOSINOPHILS ABSOLUTE AUTO 0.02 K/mm3 (0.00-0.68); EOSINOPHILS PERCENT AUTO 0 % (0-6); Hematocrit 42.3 % (33.0-51.0); Hemoglobin 13.7 g/dL (11.5-16.0); IMMATURE GRAN ABSOLUTE AUTO 0.06 K/mm3 (0.00-0.10); IMMATURE GRAN PERCENT AUTO 1 % (0-1); LYMPHOCYTES ABSOLUTE AUTO 1.32 K/mm3 (0.84-5.20); LYMPHOCYTES PERCENT AUTO 17 % (21-46); MONOCYTES ABSOLUTE AUTO 0.55 K/mm3 (0.16-1.47); MONOCYTES PERCENT AUTO 7 % (4-13); Mean Corpuscular HGB 30.6 pg (26.0-34.0); Mean Corpuscular HGB Conc 32.4 g/dL (31.5-36.5); Mean Corpuscular Volume 94 fL (80-100); Mean Platelet Volume 12.4 fL (9.1-12.4); NEUTROPHILS PERCENT AUTO 75 % (41-73); Platelet Count 234 K/mm3 (150-400); RDW Coefficient Variation 15.9 % (11.7-14.2); RDW Standard Deviation 54.8 fL (35.1-46.3); Red Blood Cell Count 4.48 M/mm3 (3.80-5.20); White Blood Cell Count 7.86 K/mm3 (4.00-11.30)
[2019-03-04 16:24] LABS: Albumin, Blood 3.8 g/dL (3.4-5.0); Albumin/Globulin Ratio 1.2 (0.8-1.8); Bilirubin, Total 0.9 mg/dL (0.1-1.0); Bun/Creatinine Ratio 20.7 (12.0-20.0); Calcium, Blood 9.1 mg/dL (8.5-10.1); Creatinine, Blood 1.79 mg/dL (0.40-1.00); Globulin, Blood 3.2 g/dL (2.2-4.0); Potassium, Blood 2.5 mmol/L (3.5-5.5)
== END | disposition home or self-care (01) ==
LOC: LAB EV 16:11
PROVIDERS: Physician Assistant
DX: R10.9 Unspecified abdominal pain (principal)
CPT/HCPCS: 80053; 85025

== ENCOUNTER 2019-03-11 14:57 | Day surgery (SDC) | payer MEDICARE ==
[~2019-03-11] VITALS: Ht 160 cm; Wt 71.3 kg
[~2019-03-11 14:57] MED LIST changes: +ONDA4ODT PO; +Pedi-Dri 100,0060 GM; +Phenergan6.25 MG/5 PO; +STIOLTO RESPIMAT4 GM IH
--- NOTE | 2019-03-11 16:12 | NUR ---
History, Chart, Medications and Allergies reviewed before start of procedure. Lungs clear T/O to Auscultation. Patient confirms NPO status and agrees with scheduled surgery. Pre-Op teaching done. Pt verbalizes understanding. Patient States Post-Procedure ride home has been arranged.
--- NOTE | 2019-03-11 17:04 | NUR ---
03/11/19 1704 Marily Parks History, Chart, Medications and Allergies reviewed before start of procedure. 3-LEAD EKG REVIEWED WITH PHYSICIAN PRIOR TO START OF PROCEDURE.MONITOR INTACT WITH CONTINUOUS PULSE OXIMETRY AND INTERMITTENT BP. See Anesthesia record.
--- NOTE | 2019-03-11 17:59 | NUR ---
Discharge instructions reviewed with patient. Patient verbalizes understanding. Copy given to patient to take home. Discharged via wheelchair to private car for ride home.
== END 2019-03-11 23:17 | disposition home or self-care (01) ==
LOC: ORSCMMR 14:57
DX: R13.10 Dysphagia, unspecified (principal); K22.10 Ulcer of esophagus without bleeding; K44.9 Diaphragmatic hernia without obstruction or gangrene; I48.91 Unspecified atrial fibrillation; I10 Essential (primary) hypertension; E78.5 Hyperlipidemia, unspecified; J45.909 Unspecified asthma, uncomplicated; Z79.82 Long term (current) use of aspirin; Z79.01 Long term (current) use of anticoagulants; Z79.899 Other long term (current) drug therapy
CPT/HCPCS: 82947; J2704; J7120; J7799

== ENCOUNTER → 2019-03-13 | Outpatient (CLI) | payer MEDICARE | END | disposition home or self-care (01) | LOC: LAB SHORT 11:00 → LAB EV 11:00 | DX: R30.0 Dysuria (principal) | CPT/HCPCS: 87077; 87086; 87186 ==

== ENCOUNTER → 2019-04-03 | Outpatient (CLI) | payer MEDICARE ==
[2019-04-03 19:39] LABS: CHOL/HDL RATIO 1.9; Cholesterol 127 mg/dL (50-200); HDL Cholesterol 66 mg/dL (>39); LDL/HDL RATIO 0.6; Low Density Lipoprotein Chol 42 mg/dL (<110); Triglycerides 94 mg/dL (30-160); Very Low Density Lipoprot Chol 18 mg/dL (6-32)
== END | disposition home or self-care (01) ==
LOC: LAB SHORT 18:16 → LAB EV 18:16
PROVIDERS: Physician Assistant
DX: E78.5 Hyperlipidemia, unspecified (principal)
CPT/HCPCS: 80061

== ENCOUNTER → 2019-05-24 | Outpatient (CLI) | payer MEDICARE | END | disposition home or self-care (01) | LOC: LAB SHORT 12:32 → LAB EV 12:32 | DX: N39.0 Urinary tract infection, site not specified (principal) | CPT/HCPCS: 87077; 87086; 87186 ==

== ENCOUNTER → 2019-07-26 | Outpatient (CLI) | payer MEDICARE | END | disposition home or self-care (01) | LOC: LAB EV 12:13 → LAB SHORT 12:13 | DX: R31.9 Hematuria, unspecified (principal) | CPT/HCPCS: 87077; 87086; 87186 ==

== ENCOUNTER → 2019-10-06 | Outpatient (CLI) | payer MEDICARE ==
[2019-10-06 17:17] LABS: BASOPHILS ABSOLUTE AUTO 0.02 K/mm3 (0.00-0.23); BASOPHILS PERCENT AUTO 0 % (0-2); EOSINOPHILS ABSOLUTE AUTO 0.14 K/mm3 (0.00-0.68); EOSINOPHILS PERCENT AUTO 3 % (0-6); Hematocrit 35.5 % (33.0-51.0); Hemoglobin 10.8 g/dL (11.5-16.0); IMMATURE GRAN ABSOLUTE AUTO 0.01 K/mm3 (0.00-0.10); IMMATURE GRAN PERCENT AUTO 0 % (0-1); LYMPHOCYTES ABSOLUTE AUTO 1.42 K/mm3 (0.84-5.20); LYMPHOCYTES PERCENT AUTO 27 % (21-46); MONOCYTES ABSOLUTE AUTO 0.39 K/mm3 (0.16-1.47); MONOCYTES PERCENT AUTO 7 % (4-13); Mean Corpuscular HGB Conc 30.4 g/dL (31.5-36.5); Mean Corpuscular Volume 89 fL (80-100); Mean Platelet Volume 11.3 fL (9.1-12.4); NEUTROPHILS PERCENT AUTO 62 % (41-73); Platelet Count 197 K/mm3 (150-400); RDW Coefficient Variation 14.6 % (11.7-14.2); RDW Standard Deviation 46.8 fL (35.1-46.3); White Blood Cell Count 5.28 K/mm3 (4.00-11.30)
[2019-10-06 17:31] LABS: Albumin, Blood 3.5 g/dL (3.4-5.0); Bilirubin, Total 0.3 mg/dL (0.1-1.0); Bun/Creatinine Ratio 31.7 (12.0-20.0); Calcium, Blood 8.6 mg/dL (8.5-10.1); Creatinine, Blood 1.23 mg/dL (0.40-1.00); Globulin, Blood 3.6 g/dL (2.2-4.0); Potassium, Blood 4.4 mmol/L (3.5-5.5); Total Protein, Blood 7.1 g/dL (6.4-8.2)
== END | disposition home or self-care (01) ==
LOC: LAB EV 17:02 → LAB SHORT 17:02
PROVIDERS: Physician Assistant
DX: I11.0 Hypertensive heart disease with heart failure (principal); I50.20 Unspecified systolic (congestive) heart failure; E78.5 Hyperlipidemia, unspecified; E11.21 Type 2 diabetes mellitus with diabetic nephropathy
CPT/HCPCS: 36415; 80053; 83036; 83880; 85025